=== PATIENT | female | born 1950 | race Caucasian/White ===

== ENCOUNTER 2021-07-16 22:46 | Inpatient (IN) | payer MEDICARE, OTHER, SELFPAY ==
[2021-07-16] VITALS (7 sets, daily range): BP systolic 101–130; BP diastolic 60–74; PULSE 91–101; RESP 18–26; TEMP 36.3; O2SAT 90–97; BMI 137.9
--- NOTE | 2021-07-16 21:55 | NURSING ---
Pt received to ICU 5, Pt transferred to bed, monitor applied. Pt aox3, follows all commands-slow to respond at times.
--- NOTE | 2021-07-16 22:23 | HP.PCM_ITS ---
HPI - General General Date of Admission: 07/16/21 HPI Narrative GABINO ESTRELLA, is a 71 F who presents for admission from [facility] due to severe hyponatremia. Patient was reportedly found by her friend today who noticed a significant mental status change. History obtained by the [place] emergency room physician found that the patient had stopped her medication of fluvoxamine, mirtazapine and possibly Propranolol about 10 days ago. Last Friday she did have a conversation with her psychiatrist and may have restarted some if not all of those medications. The patient was alert and oriented to person and place and denied any falls or trauma. She denies any chest pain shortness of breath, fevers or chills. She was tested for COVID-19 and was negative at the outside hospital. She was seen at another hospital 2 weeks ago and had a CT scan done due to blurry vision which was normal and had a normal sodium at that time. CT scan of the brain was negative in [place] emergency room. Toxicology was negative, as well as negative for UTI or pneumonia. Sodium had already improved from its initial 117-124 by the time of departure from the emergency room and [place] to [place]. Patient arrived in stable condition and will be observed overnight in the ICU for possible stepdown later tomorrow [facility] Medical History (Updated 07/16/21 @ 22:[address] Costa Iniguez MD) Anxiety Hypothyroidism Allergy/AdvReac Type Severity Reaction Status Date / Time amoxicillin [From Augmentin] AdvReac Nausea Verified 07/16/21 22:28 clavulanic acid AdvReac Nausea Verified 07/16/21 22:28 [From Augmentin] Social History Smoking Status: Never smoker ROS Constitutional Constitutional: Denies anorexia, chills, fatigue or fever(s) Eyes Eyes: Denies change in vision ENT HEENT: Denies abnormal hearing Cardiovascular Cardiovascular: Denies chest pain Respiratory/Chest Respiratory/Chest: Denies cough Gastrointestinal Gastrointestinal: Denies abdominal pain Musculoskeletal Musculoskeletal: Denies extremity pain Integumentary Integumentary: Denies jaundice Neurologic Neurologic: Reports confusion Psychiatric Psychiatric: Reports anxiety Vital Signs Vital Signs Vital Signs: 07/16/21 22:03 07/16/21 22:09 07/16/21 22:15 Temperature 97.4 F L Temperature Source Temporal Pulse Rate 101 H 98 98 Respiratory Rate 26 H 18 Blood Pressure 130/69 H 126/61 H Blood Pressure Mean 89 82 Blood Pressure Source Monitor Monitor Blood Pressure Position Semi-Fowlers Semi-Fowlers Blood Pressure Location Right Arm Right Arm Pulse Ox 90 95 Oxygen Delivery Method Room Air Room Air Weight Weight: 137 lb 12.623 oz Body Mass Index (BMI) 137.9 Physical Exam Const alert and oriented x3 HEENT normocephalic and head/scalp atraumatic Eyes PERRL and EOMs intact bilaterally Neck supple Lymph Lymphatic: no lymphadenopathy noted Resp normal respiratory effort and clear to auscultation bilaterally Cardio regular rate, S1 normal heart sound, S2 normal heart sound and no murmurs GI normal to inspection, nondistended, normoactive bowel sounds Extremity no clubbing, cyanosis or edema Skin General Skin Exam: turgor normal Neuro CN's II-XII intact bilaterally Assessment & Plan Assessment/Plan (1) Hyponatremia: PLAN: Plan 1. Hyponatremia?admit patient to ICU?IV normal saline at a rate of 125 cc/h overnight, BMP every 4 hours. Consult pathology collector in the morning per ICU routine. Maintain patient with safety protocols for fall. 2. Hypothyroidism?check TSH 3. History of psychiatric disorder questionable bipolar?we will need to obtain accurate medical records for medications patient is supposed to be taking. Will hold for now and continue Ativan as needed for agitation. 4. DVT prophylaxis?low molecular weight heparin Charges/Coding Multi Select Codes Visit Charges Visit Charges: 19726 Init Hosp L3
[2021-07-16] MEDS: 0.9% Normal Saline 1,000 ML 125 ML IV (23:21)
--- NOTE | 2021-07-16 23:27 | NURSING ---
pandemic documentation initiated.
[2021-07-16 23:51] LABS: Anion Gap 5 (5-15); BUN 10 mg/dL (7-18); BUN/Creat Ratio 13.6 RATIO (10-20); Calcium,Total 8.4 mg/dL (8.5-10.1); Chloride 104 mmol/L (98-107); Creatinine, Serum 0.73 mg/dL (0.55-1.02); EST Glomerular Filtration Rate 83 mL/min (>60); Est Glom Filt Rate - Afr Amer 100 mL/min (>60); Estimated Creatinine Clearance 50.17 ml/min; Glucose 121 mg/dL (74-106); Sodium Level 135 mmol/L (136-145)
[2021-07-17] VITALS (14 sets, daily range): BP systolic 106–128; BP diastolic 53–71; PULSE 75–104; RESP 14–27; TEMP 36.1–37.2; O2SAT 92–100
[2021-07-17] MEDS: Enoxaparin 40 MG/0.4 ML Syringe SC (00:30)
--- NOTE | 2021-07-17 00:35 | NURSING ---
Pt awake, questions asked Synthroid 125mcg daily Luvox 1 tablet daily lorazepam as needed at night history of ocd, depression and anxiety, [facility]-was having trouble walking distances, went to [facility], they ordered lasix -but pt quit taking it because of peeing so much
[2021-07-17 05:23] LABS: Anion Gap 5 (5-15); BUN 9 mg/dL (7-18); BUN/Creat Ratio 14.8 RATIO (10-20); Calcium,Total 8.2 mg/dL (8.5-10.1); Chloride 111 mmol/L (98-107); Creatinine, Serum 0.61 mg/dL (0.55-1.02); EST Glomerular Filtration Rate 102 mL/min (>60); Est Glom Filt Rate - Afr Amer 124 mL/min (>60); Estimated Creatinine Clearance 40.22 ml/min; Glucose 98 mg/dL (74-106); Potassium 4.2 mmol/L (3.5-5.1); Sodium Level 140 mmol/L (136-145)
--- NOTE | 2021-07-17 09:30 | CASEMGMT ---
RN CM Face to Face with patient for initial transition planning/care coordination assessment. RN CM introduced self and role at [facility]. Patient lying in bed, alert and oriented. Patient willing to participate in assessment and is able to answer all questions appropriately. Care providers, pharmacy, and demographics verified. Patient wishes to discharge home, denies need for home health at this time. Patient states she has no further needs or concerns at this time. CM to follow for discharge planning needs that may arise. PCP: Brent Specialists: Remberto, customer service technician Media Preferred Pharmacy: [facility] Insurance: [facility], O Prescription Benefit: yes Living Will/HPOA: yes, son Migel Vital LNOK: son, brother Living Arrangements: Patient lives alone in a single story home with 1 step and grab bar to enter the home. Patient states she is independent at home. Transportation: self/son/family DME/HHC: Patient states she has walker and shower chair at home. Denies previous HHC. Disposition Plan: Patient to discharge home with family support and follow-up plans in place. Jessica GARCIA, RN, CM
--- NOTE | 2021-07-17 13:22 | PCM.PN.HOSP ---
Documented by User: Fidel ANDRADE 07/17/21 13:34 Subjective Subjective Patient is a 71-year-old female comfortably resting in bed, alert and orient x3. Although patient is alert and oriented and mentating well, she cannot provide much insight into her current condition and seems confused around the events resulting in her admission. Denies chest pain, shortness of breath, palpitations, hemoptysis, sputum production, fever, chills, N/V/D. Objective Data Objective Data Vital Signs: Vital Signs Temp Pulse Resp BP Pulse Ox 98.8 F 96 14 117/68 94 07/17/21 10:02 07/17/21 10:02 07/17/21 10:02 07/17/21 10:02 07/17/21 11:49 Oxygen Delivery Method Room Air Weight: 141 lb 5.061 oz Body Mass Index (BMI) 137.9 Intake & Output: Intake and Output for Last 24 Hours 07/15/21 07/16/21 07/17/21 23:59 23:59 23:59 Intake Total 514.58 / 514.58 Output Total 2500 / 2500 Balance -42 / - Lab / Micro Data Result Diagrams: 07/17/21 05:02 07/17/21 05:02 Labs: Laboratory Results - last 24 hr 07/16/21 23:00: Sodium 135 L, Potassium 4.0, Chloride 104, Carbon Dioxide 26.0, Anion Gap 5, BUN 10, Creatinine 0.73, Estim Creat Clear Calc 50.17, Est GFR (MDRD) Af Amer 100, Est GFR (MDRD) Non-Af 83, BUN/Creatinine Ratio 13.6, Glucose 121 H, Calcium 8.4 L 07/17/21 05:02: Sodium 140, Potassium 4.2, Chloride 111 H, Carbon Dioxide 24.0, Anion Gap 5, BUN 9, Creatinine 0.61, Estim Creat Clear Calc 40.22, Est GFR (MDRD) Af Amer 124, Est GFR (MDRD) Non-Af 102, BUN/Creatinine Ratio 14.8, Glucose 98, Calcium 8.2 L Physical Exam Const alert, oriented x3 and no apparent distress HEENT head/scalp atraumatic, moist oral mucous membranes and oropharynx normal Head and Scalp: normocephalic Eyes PERRL, EOMs intact bilaterally and conjunctivae normal Neck no lymphadenopathy, supple and no JVD Resp normal respiratory effort, no retractions, no use of accessory muscles and clear to auscultation bilaterally Cardio regular rate, regular rhythm, no murmurs and no JVD GI normal to inspection, nondistended, normoactive bowel sounds, soft to palpation and non-tender Extremity normal to inspection, full ROM and no clubbing, cyanosis or edema Skin no rashes or lesions noted, no wounds, skin turgor normal and no jaundice Neuro CN's II-XII intact bilaterally Psych affect normal Assessment & Plan Assessment/Plan (1) Hyponatremia: PLAN: Day 1 Discharge planning: Patient to discharge home when medically medically. 1) hyponatremia Resolved, sodium is currently 140. Sodium has spontaneously resolved/overcorrected despite gentle hydration. It is unclear of the etiology at this time as osmolalities were not obtained on admission. Plan; remain admitted to PCU for cardiac monitoring, obtain BMP in the a.m, attempting to contact patient psychiatrist in regards to psychiatric meds relating to this diagnosis. 2) hypothyroidism Continue Synthroid. 3) depression/anxiety Continue Remeron and fluvoxamine. Attempted to contact psychiatrist as above. DVT prophylaxis - Lovenox. Patient seen by Fidel Urban PA-C, under the supervision of Dr. Mclean. Documented by User: Dr. Iva Mclean DO 07/17/21 15:17 Subjective Subjective This patient was seen in conjunction with Fidel Urban NP. The following represents my independent history and physical examination. Please see below for any addendum the above. Patient is currently alert and oriented x3 although sleepy as it is morning and she is just waking up. She remains a bit confused on her medications but states she has to have her psych meds after we discussed that they can cause hyponatremia. Upon review of the data it appears that her sodium had been normalized. We are trying to ascertain when these medications were initiated. Objective Data Lab / Micro Data Result Diagrams: 07/17/21 05:02 07/17/21 05:02 Physical Exam Const alert, oriented x3 and no apparent distress Constitutional Narrative: Elderly white female lying in bed, somewhat groggy but awakens with time as she was awakened from sleep, nontoxic, appears slightly confused HEENT head/scalp atraumatic and moist oral mucous membranes Head and Scalp: normocephalic Resp normal respiratory effort, no retractions, no use of accessory muscles and clear to auscultation bilaterally Auscultation: Negative for crackles, rales, rhonchi or wheezes Cardio regular rate, regular rhythm, S1 normal heart sound, S2 normal heart sound, no murmurs, no rub, no gallops, no clicks and no JVD GI normal to inspection, nondistended, normoactive bowel sounds, soft to palpation, non-tender and non-distended Extremity no clubbing, cyanosis or edema Peripheral Pulses: Yes pulses 2+ throughout Skin no rashes or lesions noted, no wounds, skin turgor normal, no jaundice, no petechiae and no mottling Skin Narrative: Skin is pale Neuro oriented x3, CN's II-XII intact bilaterally, moves all extremities and no focal motor deficits Neuro Narrative: Mild confusion when it comes more detail but was alert and oriented x3 Sensorium / Orientation: awake and alert Speech: speech normal Psych Mood & Affect: anxious Assessment & Plan Assessment/Plan (1) Hyponatremia: PLAN: Assessment: Acute hyponatremia-resolved Hypothyroidism Depression/anxiety Hypertension Tachycardia Plan: Sodium has corrected at this time. Patient was mental status seems to be improved upon my review of the chart in comparison to my exam Stop IV fluids Unfortunately further work-up to her hyponatremia was not done on admission when she was hyponatremic and I am unclear what the etiology may be although differential includes dehydration, psychogenic polydipsia, and SIADH -Patient had no nausea vomiting or diarrhea -We will check TSH and cortisol but with correction I doubt these are the etiology as she would most likely be continued hyponatremic until the underlying pathology was corrected Restart home psych meds for now and monitor sodium closely -We are trying to contact her psychiatrist with regards to her psychiatric meds but have been unable to contact them thus far She was seen by physical therapy and they recommended no further therapy at discharge Probable discharge tomorrow with close follow-up via her PCP for her sodium levels Charges/Coding Visit Charges Inpatient E&M: 78208 Subs Hosp L2
[2021-07-17] MEDS: fluvoxaMINE Maleate 50 MG Tablet PO (14:35)
[2021-07-17] MEDS: Levothyroxine 125 MCG Tablet PO (14:35)
[2021-07-17] MEDS: Propranolol 40 MG Tablet PO (14:36)
--- NOTE | 2021-07-17 15:09 | NURSING ---
Patient tentatively scheduled for hospital van ride home [phone] Friday.
--- NOTE | 2021-07-17 15:26 | CHAPLAIN ---
Type of Pastoral Visit _x__ Initial Visit ___ Follow-up Visit ___ On-call Visit ___ General Patient Visit ___ Spiritual Assessment ___ Family Conference ___ Bereavement ___ Rapid Response ___ Code Blue ___ Other (describe below) Pastoral Care Referral From _x__ Patient ___ Family ___ Nurse ___ Physician ___ Stunner Animal ___ Analytical Statistician ___ Other (describe below) Sacrament/Intervention _x__ Active listening ___ Anointing ___ Restorationism ___ Bereavement ___ Communion ___ Sonal exploration ___ _x__ Life review _x__ Prayer ___ Reconciliation ___ Sacrament of Sick _x__ Supportive presence ___ Wedding ___ Other (describe below) Pastoral Comments patient admits that she has had some depression and anxiety in the past and that I don't know what brought this on this time except that I wasn't eating and drinking well and that my son and family went on vacation; pt states that she moved from her normal surroundings to be close to her son and now she feels like I don't know where anything is and how to get around; pt welcomes the presence and prayers given for spiritual and emotional support
[2021-07-17 15:59] LABS: Absolute Lymphocyte Count 1.19 X10^3/uL (0.83-4.51); Absolute Neutrophil Count 2.8 X10^3/uL (2.0-7.7); Basophil# 0.02 X10^3/uL; Basophil% 0.4 % (0-1); Eosinophil# 0.04 X10^3/uL; Eosinophils% 0.9 % (0-5); Hematocrit 35.1 % (37-47); Hemoglobin 11.5 g/dL (12.0-15.0); Lymphocyte # 1.19 X10^3/ul (0.83-4.51); Lymphocyte % 26.6 % (19-41); Mean Corp Hgb Conc 32.8 g/dL (32-36); Mean Corpuscular Volume 91.6 fL (81-99); Mean Platelet Vol. 10.2 fl (6.2-12.0); Monocyte# 0.41 X10^3/uL; Monocyte% 9.2 % (0-10); NRBC Flagged by Analyzer 0 % (0-5); Neutrophil # 2.81 X10^3/uL (2.7-7.7); Neutrophil % 62.7 % (47-70); Platelet Count 207 K/mm3 (150-450); RBC Distribution Width CV 14.9 % (11.6-14.6); RBC Distribution Width SD 50.5 fl (35.1-43.9); Red Blood Count 3.83 M/mm3 (4.2-5.4); White Blood Count 4.5 K/mm3 (4.4-11.0)
[2021-07-17 16:48] LABS: Thyroid Stim Hormone (TSH) 0.58 uIU/mL (0.358-3.74)
--- NOTE | 2021-07-17 19:51 | PCS.PANDOC ---
PANDEMIC DOCUMENTATION INITIATED: Date: 06/25/2021 Time: 190
[2021-07-17] MEDS: Mirtazapine 30 MG Tablet PO (21:44)
[2021-07-18 03:34] VITALS: BP 146/62; PULSE 72; RESP 18; TEMP 36.5; O2SAT 96
[2021-07-18] MEDS: Levothyroxine 125 MCG Tablet PO (03:38)
[2021-07-18 06:46] LABS: Anion Gap 1 (5-15); BUN 11 mg/dL (7-18); BUN/Creat Ratio 15.6 RATIO (10-20); Calcium,Total 8.3 mg/dL (8.5-10.1); Chloride 115 mmol/L (98-107); EST Glomerular Filtration Rate 87 mL/min (>60); Est Glom Filt Rate - Afr Amer 105 mL/min (>60); Estimated Creatinine Clearance 40.22 ml/min; Glucose 102 mg/dL (74-106); Potassium 4.9 mmol/L (3.5-5.1); Sodium Level 141 mmol/L (136-145)
[2021-07-18 07:40] VITALS: O2SAT 96
[2021-07-18 09:08] VITALS: BP 142/80; PULSE 73; RESP 16; TEMP 36.6; O2SAT 97
[2021-07-18] MEDS: Propranolol 40 MG Tablet PO (09:10)
[2021-07-18] MEDS: fluvoxaMINE Maleate 50 MG Tablet PO (09:11)
[2021-07-18] MEDS: LORazepam 1 MG Tablet PO (09:23)
--- NOTE | 2021-07-18 10:39 | PCM.DC ---
Discharge Instructions Diet Discharge Diet: No restrictions Activity Discharge Activity: Return to Normal Activity Weight Bearing Status: Weight bearing as tolerated Dressing / Incision Call your doctor if you observe: Fever of 101 or Higher, Numbness or Tingling, Shortness of breath, Dizziness, Chest pain, Increased palpitations (irregular heartbeat) and Calf discomfort Follow Up Care Please Follow Up With: Primary care provider When: Within the next two weeks. Test Results: Test results from this visit will be discussed in further detail at your follow-up appointment, if applicable. Discharge Plan Admission Admit Date/Time: 07/16/21 22:46 Primary Reason for Your Visit: Low sodium Attending Provider: Iva Mclean Discharge Orders/Prescriptions Prescriptions: Continued mirtazapine 30 mg tablet 30 mg PO QHS RF: 0 levothyroxine 125 mcg tablet 125 mcg PO DAILY RF: 0 fluvoxamine 50 mg tablet 50 mg PO DAILY RF: 0 propranolol 40 mg Tablet 40 mg PO BID RF: 0 lorazepam 1 mg Tablet 1 mg PO BID PRN (Reason: Anxiety) RF: 0 lamotrigine 100 mg Tablet 100 mg PO DAILY RF: 0 Discontinued furosemide 20 mg Tablet 20 mg PO DAILY RF: 0 Referrals / Follow Up: LILLIAM FRANCIS [Other] - See Referral Note (Report to your primary care office to obtain repeat BMP to assess sodium levels. ) Disposition Disposition (needs filled in before D/C Order can be placed): Home, Self Care
--- NOTE | 2021-07-18 10:48 | CASEMGMT ---
Pt has been independent in halls and plan is for discharge today. Louann ERIC to be setting up appt for pt to get BMP on 07/20/21 thru PCP office. Pt already set up with van transport home by PCU charge. Pt voices no further questions/concerns/needs. Markus RHODES CM
--- NOTE | 2021-07-18 13:01 | PCM.DC.SUM ---
Documented by User: Fidel ANDRADE 07/18/21 13:11 Providers Date of Admission: 07/16/21 Primary Care Physician: LILLIAM FRANCIS Reason For Visit: HYPONATREMIA Diagnosis Discharge Diagnosis (1) Hyponatremia: Status: Acute Code(s): E87.1 - Hypo-osmolality and hyponatremia Medications at Discharge Home Medications fluvoxamine 50 mg PO DAILY 07/17/21 lamotrigine 100 mg PO DAILY 07/17/21 levothyroxine 125 mcg PO DAILY 07/17/21 lorazepam 1 mg PO BID PRN 07/17/21 mirtazapine 30 mg PO QHS 07/17/21 propranolol 40 mg PO BID 07/17/21 Hospital Course Summary of Care Provided Minutes Spent on Discharge: 35 Hospital Course: Disposition: Patient to discharge home. Contacted patient's son, Migel, who was on vacation. Migel was to return to the area on 07/21/2021. Migel is agreeable to assist patient with transportation to and from primary care provider for appropriate follow-up for hyponatremia. 1) Hyponatremia Resolved, sodium is currently 141. Sodium has spontaneously resolved/overcorrected despite gentle hydration. It is unclear of the etiology at this time as osmolalities were not obtained on admission. TSH and cortisol within normal limits. Attempted to contact patient's psychiatrist to see if hyponatremia could be medication related as patient had recently resumed her psychiatric regimen. Psychiatrist was unable to be contacted. Plan; no medication changes were made at this time as psychiatrist was not able to be contacted, follow-up with primary care provider on 07/23/2021 for repeat BMP to assess sodium level, transportation organized with Migel, as above. 2) hypothyroidism Continue Synthroid. 3) depression/anxiety Continue home regimen. Patient seen by Fidel Urban PA-C, under the supervision of Dr. Mclean. Physical Exam Narrative Patient is a 71-year-old female comfortably resting in bed, alert and orient x3. Patient denies any development of any new symptoms overnight. Denies chest pain, shortness of breath, palpitations, hemoptysis, sputum production, fever, chills, N/V/D. Const alert, oriented x3 and no apparent distress HEENT normocephalic, head/scalp atraumatic and hearing grossly normal bilaterally Eyes PERRL, EOMs intact bilaterally and conjunctivae normal Neck no lymphadenopathy, supple and no JVD Resp normal respiratory effort, no retractions, no use of accessory muscles and clear to auscultation bilaterally Cardio regular rate, regular rhythm, no murmurs and no JVD GI normal to inspection, nondistended, normoactive bowel sounds, soft to palpation and non-tender Extremity normal to inspection, full ROM and no clubbing, cyanosis or edema Skin no rashes or lesions noted, no wounds and skin turgor normal Neuro CN's II-XII intact bilaterally Psych Mood & Affect: anxious Weight / BMI Weight Weight: 135 lb 8 oz Body Mass Index (BMI) 137.9 ABG / Lab / Microbiology Data Result Diagrams: 07/17/21 15:46 07/18/21 06:12 Laboratory: Laboratory Results - last 24 hr 07/17/21 15:46: TSH 0.58 07/17/21 15:46: Cortisol 5.90 07/17/21 15:46: WBC 4.5, RBC 3.83 L, Hgb 11.5 L, Hct 35.1 L, MCV 91.6, MCH 30.0, MCHC 32.8, RDW Std Deviation 50.5 H, RDW Coeff of Elizabeth 14.9 H, Plt Count 207, MPV 10.2, Immature Gran % (Auto) 0.200, Neut % (Auto) 62.7, Lymph % (Auto) 26.6, [place] % (Auto) 9.2, Eos % (Auto) 0.9, Baso % (Auto) 0.4, Absolute Neuts (auto) 2.8, Absolute Lymphs (auto) 1.19, Nucleated RBC % 0 07/18/21 06:12: Sodium 141, Potassium 4.9, Chloride 115 H, Carbon Dioxide 25.0, Anion Gap 1 L, BUN 11, Creatinine 0.70, Estim Creat Clear Calc 40.22, Est GFR (MDRD) Af Amer 105, Est GFR (MDRD) Non-Af 87, BUN/Creatinine Ratio 15.6, Glucose 102, Calcium 8.3 L D/C Instructions Discharge Diet: No restrictions Weight Bearing Status: Weight bearing as tolerated Call your doctor if you observe: Fever of 101 or Higher, Numbness or Tingling, Shortness of breath, Dizziness, Chest pain, Increased palpitations (irregular heartbeat) and Calf discomfort Please Follow Up With: Primary care provider When: Within the next two weeks. Meaningful Use Info Meaningful Use Diagnoses (Choose all that apply): None applicable Discharge Plan Admission Admit Date/Time: 07/16/21 22:46 Primary Reason for Your Visit: Low sodium Attending Provider: Iva Mclean Instructions Additional Instructions / Restrictions: Obtain additional BMP on 07/23/2021 at primary care office to monitor Sodium level. Discharge Orders/Prescriptions Prescriptions: Continued mirtazapine 30 mg tablet 30 mg PO QHS RF: 0 levothyroxine 125 mcg tablet 125 mcg PO DAILY RF: 0 fluvoxamine 50 mg tablet 50 mg PO DAILY RF: 0 propranolol 40 mg Tablet 40 mg PO BID RF: 0 lorazepam 1 mg Tablet 1 mg PO BID PRN (Reason: Anxiety) RF: 0 lamotrigine 100 mg Tablet 100 mg PO DAILY RF: 0 Discontinued furosemide 20 mg Tablet 20 mg PO DAILY RF: 0 Referrals / Follow Up: LILLIAM FRANCIS [Other] - See Referral Note (Report to your primary care office on 07/23/2021 to obtain repeat BMP to assess sodium levels. ) Disposition Disposition (needs filled in before D/C Order can be placed): Home, Self Care Documented by User: Dr. Iva Mclean DO 07/18/21 13:23 Providers Date of Admission: 07/16/21 Reason For Visit: HYPONATREMIA Medications at Discharge Home Medications fluvoxamine 50 mg PO DAILY 07/17/21 lamotrigine 100 mg PO DAILY 07/17/21 levothyroxine 125 mcg PO DAILY 07/17/21 lorazepam 1 mg PO BID PRN 07/17/21 mirtazapine 30 mg PO QHS 07/17/21 propranolol 40 mg PO BID 07/17/21 Hospital Course Operations None Procedures None Summary of Care Provided Minutes Spent on Discharge: 38 Hospital Course: Marie Vital is a 71-year-old white female who initially presented to [facility] emergency department with severe hyponatremia. The patient was found at her home today by a friend who noticed she had a significant mental status change. It was documented that she had stopped her psychiatric medications and possibly her propranolol 10 days prior and had recently restarted some if not all of those medications but the specifics were unclear. Her initial sodium was 117 and had improved to 124 by the time of departure from the emergency department at [facility]. She was admitted to the ICU and placed on normal saline at 70 cc/h and had correction of her sodium to 140 on the morning of 07/18/2021. IV fluids were discontinued at that time and she was restarted on her home medications. Her sodium level stayed consistently in the 140 range and on discharge her serum sodium was 141. Unfortunately work-up to discover the etiology of her hyponatremia was not pursued on admission and by the time I was able to evaluate her her sodium had normalized. Cortisol and thyroid were obtained and both were within normal limits. The differential includes SIADH and psychogenic polydipsia at this time given the data that I do have. We have instructed the patient to follow-up for a repeat BMP on 07/23/2021 with her PCP. This was discussed with both her, her son, and her primary care's office. An appointment was made for this follow-up lab draw. She will need close follow-up after discharge. We also recommended her following up her psychiatrist that she was noted to be significantly anxious during her hospitalization. She indicated she already had appointments to do so. Discharge diagnoses: Acute hyponatremia-resolved Hypothyroidism Depression Severe anxiety Hypertension Physical Exam Const alert, oriented x3 and no apparent distress Constitutional Narrative: Elderly white female lying in bed, appears very anxious and perseverating on her ride home today, she is anxious to go home. General Appearance: cooperative, comfortable, well kempt and well developed Orientation / Consciousness: awake HEENT normocephalic, head/scalp atraumatic, hearing grossly normal bilaterally and moist oral mucous membranes Eyes PERRL and EOMs intact bilaterally Neck no lymphadenopathy, supple and no JVD Neck Narrative: Trachea midline, no thyroid enlargement Lymph Lymphatic: no lymphadenopathy noted Resp normal respiratory effort, no retractions, no use of accessory muscles and clear to auscultation bilaterally Auscultation: Negative for crackles, rales, rhonchi or wheezes Cardio regular rate, regular rhythm, S1 normal heart sound, S2 normal heart sound, no murmurs, no rub, no gallops, no clicks and no JVD GI normal to inspection, nondistended, normoactive bowel sounds, soft to palpation, non-tender and non-distended Extremity no clubbing, cyanosis or edema Skin no rashes or lesions noted, no wounds, skin turgor normal, no jaundice, no petechiae and no mottling Skin Narrative: Skin is pale General Skin Exam: turgor normal Neuro oriented x3, CN's II-XII intact bilaterally, moves all extremities and no focal motor deficits Neuro Narrative: Mild confusion when it comes more detail but was alert and oriented x3 Sensorium / Orientation: awake and alert Speech: speech normal Psych Psych Narrative: Patient is extremely anxious Mood & Affect: anxious ABG / Lab / Microbiology Data Result Diagrams: 07/17/21 15:46 07/18/21 06:12 Discharge Plan Admission Admit Date/Time: 07/16/21 22:46 Primary Reason for Your Visit: Low sodium Attending Provider: Iva Mclean Instructions Additional Instructions / Restrictions: Obtain additional BMP on 07/23/2021 at primary care office to monitor Sodium level. Discharge Orders/Prescriptions Prescriptions: Continued mirtazapine 30 mg tablet 30 mg PO QHS RF: 0 levothyroxine 125 mcg tablet 125 mcg PO DAILY RF: 0 fluvoxamine 50 mg tablet 50 mg PO DAILY RF: 0 propranolol 40 mg Tablet 40 mg PO BID RF: 0 lorazepam 1 mg Tablet 1 mg PO BID PRN (Reason: Anxiety) RF: 0 lamotrigine 100 mg Tablet 100 mg PO DAILY RF: 0 Discontinued furosemide 20 mg Tablet 20 mg PO DAILY RF: 0 Referrals / Follow Up: LILLIAM FRANCIS [Other] - See Referral Note (Report to your primary care office on 07/23/2021 to obtain repeat BMP to assess sodium levels. ) Disposition Disposition (needs filled in before D/C Order can be placed): Home, Self Care Charges/Coding Visit Charges Inpatient E&M: 72120 Disch Hosp
== END 2021-07-18 15:01 | disposition home or self-care (01) | DRG 641 ==
LOC: ICU 07-17 07:57 → PCU 07-17 11:28
PROVIDERS: Physician Assistant; Admitting Provider Family Medicine; Visit Provider Internal Medicine
DX: E87.1 Hypo-osmolality and hyponatremia (principal); F41.9 Anxiety disorder, unspecified; E03.9 Hypothyroidism, unspecified; F32.9 Major depressive disorder, single episode, unspecified; I10 Essential (primary) hypertension
CPT/HCPCS: 36415; 80048; 82533; 84443; 85025; 97162; J7030